=== PATIENT | male | born 1990 | race Two or more races ===

== ENCOUNTER 2016-12-07 17:27 | Emergency (ER) | payer SELFPAY ==
[~2016-12-07] VITALS: Ht 175.3 cm; Wt 85.0 kg
[2016-12-07 21:41] VITALS: BP 129/75
== END 2016-12-07 21:42 | disposition home or self-care (01) ==
LOC: ER 17:56
DX: S80.00XA Contusion of unspecified knee, initial encounter (principal); Z88.8 Allergy status to other drugs, medicaments and biological substances; W22.8XXA Striking against or struck by other objects, initial encounter; Y93.89 Activity, other specified; Y92.89 Other specified places as the place of occurrence of the external cause; Y99.8 Other external cause status
CPT/HCPCS: 99283